=== PATIENT | male | born 1985 | race Caucasian/White ===

== ENCOUNTER 2016-12-21 06:07 | Day surgery (SDC) | payer OTHER ==
[2016-12-21] MEDS ORDERED: ACETAMINOPHEN 1,000 MG/100 ML 100 ML IV ONE (06:26)
[2016-12-21] MEDS ORDERED: ceFAZolin 2 GM/50 ML 50 ML IV ONE (06:27)
[2016-12-21] MEDS ORDERED: CELECOXIB 100 MG CAPSULE PO ONE (06:27)
[2016-12-21] MEDS ORDERED: LACTATED RINGERS 1,000 ML IV ONE ×3 (06:47→11:03)
[2016-12-21] MEDS ORDERED: PROPOFOL 200 MG/20 ML VIAL IVP ONE (07:45)
[2016-12-21] MEDS ORDERED: LIDOCAINE-MPF 2% 5 ML VIAL IM ONE (07:45)
[2016-12-21] MEDS ORDERED: ROPIVACAINE 0.5% PF 20 ML AMPULE EP ONE (07:45)
[2016-12-21] MEDS ORDERED: ROCURONIUM 50 MG/5 ML VIAL IVP ONE (07:45)
[2016-12-21] MEDS ORDERED: ACETAMINOPHEN 1,000 MG/100 ML VIAL IV ONE (07:45)
[2016-12-21] MEDS ORDERED: fentaNYL 100 MCG/2 ML VIAL IVP ONE (07:45)
[2016-12-21] MEDS ORDERED: ONDANSETRON 4 MG/2 ML VIAL IVP ONE (07:45)
[2016-12-21] MEDS ORDERED: DEXAMETHASONE 4 MG/ML VIAL IVP ONE (07:45)
[2016-12-21] MEDS ORDERED: MIDAZOLAM 2 MG/2 ML VIAL IVP ONE (07:45)
[2016-12-21] MEDS ORDERED: EPINEPHrine 1 MG/ML AMP IR ONE (08:44)
== END 2016-12-21 06:08 | disposition home or self-care (01) ==
PROC: 0MM24ZZ Reattachment of Left Shoulder Bursa and Ligament, Percutaneous Endoscopic Approach (ICD-10-PCS; 2016-12-21)
PROC: 0RQK4ZZ Repair Left Shoulder Joint, Percutaneous Endoscopic Approach (ICD-10-PCS; principal; 2016-12-21 07:30)
DX: S43.492A Other sprain of left shoulder joint, initial encounter (principal); S43.432A Superior glenoid labrum lesion of left shoulder, initial encounter; W16.612A Jumping or diving into natural body of water striking water surface causing other injury, initial encounter; Y92.828 Other wilderness area as the place of occurrence of the external cause
CPT/HCPCS: 29806; 29807; A9270; C1713; J0131; J0690; J7120